=== PATIENT | male | born 1975 | race Hispanic/Latino ===

== ENCOUNTER 2021-06-02 17:57 | Emergency (ER) | payer BC ==
[2021-06-02] MEDS ORDERED: SODIUM CHLORIDE 0.9% IRR 500 ML BOTTLE IR ONE (18:29)
[2021-06-02] MEDS ORDERED: LIDOCAINE 1%/EPINEPHRINE 1:100,000 VIAL (20 ML) INFILTRATI ONE (18:29)
[2021-06-02] MEDS ORDERED: TETANUS,DIPH,PERTUSS(ACELL) VACCINE 0.5 ML SYRINGE IM ONE (18:29)
--- NOTE | 2021-06-02 18:41 | Emergency Department Report ---
- General Chief Complaint: Eye Problems Stated Complaint: BLEED ABOVE LEFT EYE Time Seen by Provider: 06/02/21 18:25 Source: patient Mode of arrival: Ambulatory Limitations: No Limitations - History of Present Illness Initial Comments: Chief complaint: Eye laceration HPI: This is a 45-year-old male without significant past medical history presents with injury to the left arm. He cut his face with the corner of his car door. He immediately drove himself to the emergency department. He has constant mild bleeding. Unknown tetanus status. Mild pain. No loss consciousness. No vomiting or nausea. No amnesia. Patient drove his private vitals emergency department for -: Sudden Location: face Place: home Patient Tetanus UTD: No Context: accidental Associated Symptoms: pain, other (Bleeding) - Related Data Allergies Allergy/AdvReac Type Severity Reaction Status Date / Time No Known Allergies Allergy Verified 06/02/21 18:10 ED Review of Systems ROS: Stated complaint: BLEED ABOVE LEFT EYE Other details as noted in HPI Constitutional: denies: chills, fever, malaise Respiratory: denies: cough, shortness of breath Gastrointestinal: denies: abdominal pain, nausea, vomiting Skin: denies: rash, lesions ED Past Medical Hx - Past Medical History Previous Medical History?: No - Surgical History Past Surgical History?: Yes Additional Surgical History: Several surgeries - Social History Smoking Status: Never Smoker Substance Use Type: None ED Physical Exam - General Limitations: No Limitations General appearance: alert, in no apparent distress - Head Head exam: Present: normocephalic, other (1.5 cm vertical laceration medial left eyebrow deep to skull copious bleeding) - Eye Eye exam: Present: normal appearance, PERRL Pupils: Present: other (Mild eyebrow swelling ecchymoses overlying the eyelid upper) - ENT ENT exam: Present: mucous membranes moist - Neck Neck exam: Present: full ROM - Respiratory Respiratory exam: Absent: respiratory distress - Neurological Exam Neurological exam: Present: alert, oriented X3, normal gait - Expanded Neurological Exam Expanded Patient oriented to: Present: person, place, time Best Eye Response ([place]): (4) open spontaneously Best Motor Response ([place]): (6) obeys commands Best Verbal Response ([place]): (5) oriented [place] Total: 15 - Psychiatric Psychiatric exam: Present: normal affect, normal mood - Skin Skin exam: Present: warm, dry ED Course Vital Signs 06/02/21 06/02/21 06/02/21 18:05 18:15 18:16 Temperature 98.2 F Pulse Rate 84 78 Respiratory 15 12 Rate Blood Pressure 124/84 112/66 O2 Sat by Pulse 95 Oximetry 06/02/21 06/02/21 06/02/21 18:31 18:45 19:01 Temperature Pulse Rate 74 72 69 Respiratory 22 16 16 Rate Blood Pressure 112/71 112/71 112/66 O2 Sat by Pulse 93 97 98 Oximetry - Laceration /Wound Repair Left Face Wound Location: face Wound Length (cm): 1 (1.5 cm) Wound's Depth, Shape: into muscle (Details call) Wound Explored: clean Irrigated w/ Saline (ccs): 100 Betadine Prep?: Yes Anesthesia: Lidocaine w/ Epi Volume Anesthetic (ccs): 5 Wound Debrided: moderate Wound Repaired With: sutures Suture Size/Type: 5:0, proline Number of Sutures: 3 Layer Closure?: Yes Deep Layer Suture Size/Type: 4:0 Number Deep Layer Sutures: 1 (4-0 Vicryl subcutaneous suture for hemostasis) Sterile Dressing Applied?: No Progress: Observation required pressure, lidocaine epinephrine, the [id number] subcutaneous suture for hemostasis. Copious amount of bleeding. Constant oozing of blood suspect vessel injury. ED Medical Decision Making - Medical Decision Making Eyebrow laceration requiring hemostasis pressure deep suture. Patient received Tdap booster in emergency department. 3 sutures superficial. Patient understands return in 5 to 7 days for removal. He understands return precautions including signs of infection redness purulence fever. Critical care attestation.: If time is entered above; I have spent that time in minutes in the direct care of this critically ill patient, excluding procedure time. ED Disposition Clinical Impression: Complex laceration of face Disposition: HOME / SELF CARE / HOMELESS Is pt being admited?: No Does the pt Need Aspirin: No Condition: Stable Instructions: Sutured Wound Care Additional Instructions: Please have sutures removed in 5 to 7 days.
[2021-06-02 19:48] VITALS: BP 111/77
== END 2021-06-02 19:43 | disposition home or self-care (01) ==
LOC: ED 17:57
DX: S01.81XA Laceration without foreign body of other part of head, initial encounter (principal); Z98.890 Other specified postprocedural states; W22.8XXA Striking against or struck by other objects, initial encounter; Y93.89 Activity, other specified; Y92.89 Other specified places as the place of occurrence of the external cause; Y99.8 Other external cause status
CPT/HCPCS: 90471; 90715; 99282